=== PATIENT | male | born 1990 | race Two or more races ===

== ENCOUNTER 2019-06-15 13:01 | Emergency (ER) | payer OTHER ==
[~2019-06-15] VITALS: Ht 170.2 cm; Wt 73.9 kg
--- NOTE | 2019-06-15 13:17 | NUR ---
ED Nurse Note: Patient walked in to ER from work due to lower body rash and itchness. Patient alert and oriented x4 and ambulatory. Calm and cooperative. Skin clean and intact. No cardiac or acute distress noted at this time.
[2019-06-15 13:37] VITALS: BP 156/102
--- NOTE | 2019-06-15 13:49 | Emergency Room Report ---
History of Present Illness General Chief Complaint: Skin Rash/Abscess Source: Patient Present Illness HPI 28-year-old male presents to the emergency department complaining of multiple itchy insect bites scattered on the upper extremities and lower extremities as well as his torso x1 day. Patient reports that he works in a [place] and believes that he may have caught something there. Patient reports itching is the primary symptom. Pt. denies fevers, chills or swollen tender lymph nodes. Denies lesions/rashes elsewhere on the body. Denies new medications or body washes or creams. Denies swelling of the lips, tongue , throat or airway. Denies wheezing, or shortness of breath. Denies recent travel, recent illness or ill contacts. denies blisters, oral lesions, or sloughing of the skin Allergies: Coded Allergies: PENICILLINS (Verified Allergy, Unknown, 06/15/19) Patient History Past Medical History: see triage record Past Surgical History: none Pertinent Family History: none Reviewed Nursing Documentation: PMH: Agreed; PSxH: Agreed Nursing Documentation-PMH Past Medical History: No Stated History Review of Systems All Other Systems: negative except mentioned in HPI Physical Exam Vital Signs Date Time Temp Pulse Resp B/P (MAP) Pulse Ox O2 Delivery O2 Flow Rate FiO2 06/15/19 13:06 98.2 66 18 156/102 (120) 95 Room Air Sp02 EP Interpretation: reviewed, normal General Appearance: no apparent distress, alert, GCS 15, non-toxic Head: normocephalic, atraumatic Eyes: bilateral eye normal inspection, bilateral eye PERRL ENT: hearing grossly normal, normal voice, other - no oral lesions Neck: full range of motion Respiratory: lungs clear, normal breath sounds, no wheezing, speaking full sentences Cardiovascular #1: regular rate, rhythm Gastrointestinal: non tender, soft Musculoskeletal: back normal, gait/station normal, normal range of motion, non- tender Neurologic: alert, oriented x3, responsive, motor strength/tone normal, sensory intact, speech normal, grossly normal Psychiatric: judgement/insight normal Skin: other - multiple small discrete papules scattered on the bilateral UE's, LE's and torso, no facial lesions. NO discharge, crusting, blisters or vessicles. Lymphatic: no adenopathy Medical Decision Making PA Attestation Dr. Yu is my supervising Physician whom patient management has been discussed with. Diagnostic Impression: Primary Impression: Insect bites Qualified Codes: W57.XXXA - Bitten or stung by nonvenomous insect and other nonvenomous arthropods, initial encounter ER Course 28-year-old male presents to the emergency department complaining of multiple itchy insect bites scattered on the upper extremities and lower extremities as well as his torso x1 day. Patient reports that he works in a [place] and believes that he may have caught something there. Patient reports itching is the primary symptom. Pt. denies fevers, chills or swollen tender lymph nodes. Denies lesions/rashes elsewhere on the body. Denies new medications or body washes or creams. Denies swelling of the lips, tongue , throat or airway. Denies wheezing, or shortness of breath. Denies recent travel, recent illness or ill contacts. denies blisters, oral lesions, or sloughing of the skin Ddx considered but are not limited to cellulitis, scabies, insect bites, tic bites, spider bites, contact dermatitis, Drug reaction, allergic reaction, fungal infection, lice. Vital signs: are WNL, pt. is afebrile H&PE are most consistent with Insect bites of multiple sites, no evidence of secondary infection. NO evidence of impending airway compromise or anaphylaxis. ORDERS: none required at this time, the diagnosis is clinical ED INTERVENTIONS: None required at this time. DISCHARGE: At this time pt. is stable for d/c to home. Will provide printed patient care instructions, and any necessary prescriptions. Care plan and follow up instructions have been discussed with the patient prior to discharge. Last Vital Signs Date Time Temp Pulse Resp B/P (MAP) Pulse Ox O2 Delivery O2 Flow Rate FiO2 06/15/19 13:37 98.2 18 156/102 95 Room Air 06/15/19 13:06 66 Status: improved Disposition: HOME, SELF-CARE Condition: Stable Scripts Diphenhydramine Hcl (BENADRYL ALLERGY) 25 Mg Tablet 25 MG PO Q6HR, #30 TAB Prov: Maral Sy 06/15/19 Permethrin* (ELIMITE*) 60 Gm Cream..g. 1 APPLIC TOPIC ONCE, #60 GM 0 Refills Apply cream from head to toe; leave on for 8-14 hours before washing off with water; may reapply in 1 week if live mites appear. Prov: Maral Sy 06/15/19 Hydrocortisone 2% Cream (ANTI-ITCH 2% CREAM) Y Cr 1 APPLIC TP Q6HR, #28 GM 1 Refill Prov: Maral Sy 06/15/19 Referrals: [facility] Departure Forms: Return to Work Return to Work Date: Jun 15, 2019 Work Restrictions: None Return to Full Activity: Jun 15, 2019 Patient Instructions: Insect Bite, [id number], Rash, Scabies, Pediatric Additional Instructions: Take medications as directed. Follow up with a Primary Care Provider in 3-5 days, even if your symptoms have resolved. --Please review list of primary care clinics, if you do not already have a primary care provider Return sooner to ED if new symptoms occur, or current symptoms become worse. Do not drink alcohol, drive, or operate heavy machinery while taking Benadryl as this may cause drowsiness. - Please note that this Emergency Department Report was dictated using [employer] transcription technology software, occasionally this can lead to erroneous entry secondary to interpretation by the dictation equipment. Maral yS Jun 15, 2019 13:49
[2019-06-15] MEDS ORDERED: BENADRYL ALLERG25 M1 PO (13:51)
[2019-06-15] MEDS ORDERED: PERMETHRIN60 GM TOPIC (13:51)
[2019-06-15] MEDS ORDERED: ANTI-ITCH28 G1 TP (13:51)
[2019-06-15 14:01] VITALS: BP 148/99
--- NOTE | 2019-06-15 14:02 | NUR ---
ED Nurse Note: Pt cleared by health care Provider for discharge. Workers compensation paper given to pt. DC instructions/prescription was given and explained to pt and verbalized understanding of teachings. All medical deviecs such as ID band removed. Pt is AAO x4, ambulatory and left with all personal belongings.
== END 2019-06-15 15:00 | disposition home or self-care (01) ==
LOC: EMR 14:32
DX: S40.862A Insect bite (nonvenomous) of left upper arm, initial encounter (principal); S40.861A Insect bite (nonvenomous) of right upper arm, initial encounter; S80.862A Insect bite (nonvenomous), left lower leg, initial encounter; S80.861A Insect bite (nonvenomous), right lower leg, initial encounter; W57.XXXA Bitten or stung by nonvenomous insect and other nonvenomous arthropods, initial encounter; Y92.9 Unspecified place or not applicable; Z88.0 Allergy status to penicillin
CPT/HCPCS: 99282